=== PATIENT | female | born 1935 | race Caucasian/White ===

== ENCOUNTER 2023-08-10 17:34 | Emergency (ER) | payer MEDICARE, SELFPAY ==
--- NOTE | ~2023-08-10 | XR_ITS ---
EXAM: XR shoulder LT min 2V DATE: 08/10/2023 18:25 HISTORY: fall . COMPARISON: None available. FINDINGS: Decreased mineralization. No fracture or dislocation. No lytic or blastic lesion. Moderate degenerative change at the AC joint and glenohumeral joint. AC joint chondrocalcinosis. Left breast or axillary surgical clips. No erosion or periosteal change. Soft tissues within normal limits. IMPRESSION: No acute osseous finding in the left shoulder. Reviewed, dictated and finalized at location K.
--- NOTE | ~2023-08-10 | XR_ITS ---
EXAM: XR hip LT min 2V DATE: 08/10/2023 18:25 HISTORY: fall . COMPARISON: None available. FINDINGS: Decreased mineralization. Partially visualized lumbar fusion hardware. Calcified uterine f ibroids. No fracture or dislocation. No lytic or blastic lesion. Degenerative change in the lumbar sp ine, left SI joint, and left hip. Pelvic enthesopathy. No erosion or periosteal change. Soft tissues within normal limits. IMPRESSION: No acute osseous finding in the left hip. Reviewed, dictated and finalized at location K.
--- NOTE | 2023-08-10 17:38 | ED.FALL ---
HPI - Fall General Chief Complaint: Fall Stated Complaint: FALL/L SHOULDER PAIN/BLOOD SUGAR CHECK Time Seen by Provider: 08/10/23 18:00 Source: patient and family Mode of arrival: ambulatory Limitations: no limitations History of Present Illness HPI Narrative: 87-year-old female presents with multiple complaints. She reports 4 days ago she was on a cruise when she fell out of the bed landing on her left side, she was unable to get up for 2 hours and laid on her left side for that time. Reports she then scooted herself on the carpet in an attempt to get up. Reports since then she has had left shoulder pain, cannot lift her left arm above the level of her shoulder. Reports her arm feels shaky when she tries to raise it. She reports left hip pain, radiating down the thigh. She also reports she landed on her Dexcom sensor which was on her left arm and is worried it is not working. She is requesting a blood sugar check. 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 She reports 2 day history of cough without shortness of breath or chest pain MD complaint: fall Related Data Home Medications Medication Instructions Recorded Confirmed alendronate 70 mg tablet mg PO 08/10/23 anastrozole 1 mg tablet mg 08/10/23 gabapentin 300 mg capsule mg 08/10/23 insulin glargine 100 unit/mL (3 unit subcut 08/10/23 mL) subcutaneous pen (Lantus Solostar U-100 Insulin) insulin lispro 100 unit/mL subcut 08/10/23 subcutaneous pen (Humalog KwikPen (U-100) Insulin) levothyroxine 100 mcg tablet mcg 08/10/23 losartan 25 mg tablet mg 08/10/23 oxycodone-acetaminophen 5 mg-325 tablet 08/10/23 mg tablet semaglutide 2 mg/dose (8 mg/3 mL) mg subcut 08/10/23 subcutaneous pen injector (Ozempic) simvastatin 20 mg tablet mg 08/10/23 Allergies Allergy/AdvReac Type Severity Reaction Status Date / Time No Known Allergies Allergy Verified 08/10/23 17:47 Review of Systems Review of Systems: CONSTITUTIONAL: Denies malaise, chills, sweats, or fever. EYES: Denies visual changes ENT: Denies rhinorrhea, congestion, sinus pain, otalgia or sore throat. CARDIOVASCULAR: Denies chest pain, palpitations, or edema. RESPIRATORY: Reports cough. Denies dyspnea. SKIN: Reports bruising on the left shoulder and elbow MUSCULOSKELETAL: Reports left shoulder pain, left hip pain NEUROLOGIC: Denies numbness, weakness, or headache. All systems reviewed & are unremarkable except as noted in HPI and below PMFSH Comments At time of signature, agree with nursing past medical, surgical, social and family history. There is no relevant family history pertinent to the presenting complaint Exam Narrative: GENERAL: Well-appearing, well-nourished, and in no acute distress. HEAD: Normocephalic, atraumatic. EYES: PERRLA, sclera clear, and EOMI. No nystagmus. ENT: Nares clear. Mucous membranes moist. NECK: Supple. CHEST: No respiratory distress. Clear to auscultation. No bony deformities, no asymmetry. Speaks in full sentences. Cough noted HEART: Regular rate and rhythm. No murmur heard. Normal peripheral pulses. ABDOMEN: Soft, nontender, nondistended, normal active bowel sounds, no palpable masses. EXTREMITIES: Left shoulder tender at the joint, no clavicular tenderness, posterior shoulder bruising noted. Decreased range of motion, strength in the left upper extremity. Left hip laterally tender, no groin tenderness, no thigh tenderness. No bruising to the hip noted, no open skin noted. Limited range of motion with flexion, rotation of the hip SKIN: Warm, dry, no visible rash. NEURO: Alert and oriented x3. No focal deficits. Cranial nerves II through XII grossly intact PSYCH: Normal mood and affect Course Course Emergency Course: Patient is aware of diagnosis, understands and agrees to treatment plan. Anticipatory guidance given. Patient agrees to follow-up as directed and is aware of reasons to seek care at the emergency department. Portion
[2023-08-10 17:55] VITALS: BP 136/70; PULSE 72; RESP 16; TEMP 37.1; O2SAT 98
[2023-08-10 18:03] LABS: Glucose Point of Care 186 mg/dl (65-105)
== END 2023-08-10 18:45 | disposition home or self-care (01) ==
PROVIDERS: Emergency Provider Nurse Practitioner
DX: M25.512 Pain in left shoulder (principal); M25.552 Pain in left hip; E11.9 Type 2 diabetes mellitus without complications; E78.00 Pure hypercholesterolemia, unspecified; I10 Essential (primary) hypertension; M19.90 Unspecified osteoarthritis, unspecified site; E05.90 Thyrotoxicosis, unspecified without thyrotoxic crisis or storm; Z85.79 Personal history of other malignant neoplasms of lymphoid, hematopoietic and related tissues
CPT/HCPCS: 73030; 73502; 82948; 99214; G0463